=== PATIENT | female | born 1945 | race Caucasian/White ===

== ENCOUNTER 2023-10-22 19:05 | Inpatient (IN) | payer BC, OTHER ==
[~2023-10-22] VITALS: Ht 167.6 cm; Wt 137.6 kg
[2023-10-22] MEDS ORDERED: KETOROLAC TROMETHAMINE INJ 30 MG/ML VIAL ONE (19:37)
[2023-10-22] MEDS ORDERED: MORPHINE SULFATE INJ 4 MG/ML DISP.SYRIN ONE (19:37)
[2023-10-22] MEDS: FENTANYL PF 100MCG/2ML AMPUL IM ONE (19:53)
[2023-10-22] MEDS: MORPHINE SULFATE INJ 2 MG/ML DISP.SYRIN IV ONE (19:54)
[2023-10-22] MEDS: KETOROLAC TROMETHAMINE INJ 60 MG/2 ML VIAL IM ONE (19:55)
[2023-10-22 20:23] LABS: BASOPHILS # (AUTO) 0.1 K/uL (0.0-0.2); BASOPHILS % (AUTO) 0.6 % (0.0-2.0); EOSINOPHILS # (AUTO) 0.2 K/uL (0.0-0.7); EOSINOPHILS % (AUTO) 1.6 % (0.0-6.0); HEMATOCRIT 37 % (33-45); LYMPHOCYTES # (AUTO) 1.4 K/uL (0.8-4.8); LYMPHOCYTES % (AUTO) 11.1 % (20.0-44.0); MEAN CORPUSCULAR HEMOGLOBIN 30 PG (26.0-33.0); MEAN CORPUSCULAR HGB CONC 33 g/dl (31.0-36.0); MEAN CORPUSCULAR VOLUME 91 fL (82-100); MONOCYTES # (AUTO) 0.8 K/uL (0.1-1.30); MONOCYTES % (AUTO) 6.6 % (2.0-12.0); NEUTROPHILS # (AUTO) 9.9 K/uL (1.8-8.9); NEUTROPHILS % (AUTO) 80.1 % (43.0-81.0); PLATELET COUNT (AUTO) 194 K/uL (150-450); RED BLOOD CELL COUNT(AUTO) 4.06 MIL/uL (4.0-5.2); WHITE BLOOD COUNT (AUTO) 12.4 K/uL (4.3-11.0)
[2023-10-22 20:46] LABS: CALCIUM, SERUM 8.8 mg/dL (8.5-10.1); CARBON DIOXIDE 28 mmol/L (21-32); CHLORIDE 105 mmol/L (98-107); CREATININE 0.9 mg/dL (0.6-1.3); GLUCOSE 127 mg/dL (74-106); POTASSIUM 3.9 mmol/L (3.5-5.1); SODIUM SERUM 139 mmol/L (136-145); UREA NITROGEN, BLOOD 21 mg/dL (7-18)
[2023-10-22 21:01] LABS: INR 0.96 (0.91-1.10); PARTIAL THROMBOPLASTIN TIME 26.2 SEC (24.3-34.3); PROTHROMBIN TIME 10.2 SECS (9.2-11.1)
[2023-10-22] MEDS ORDERED: ONDANSETRON HCL/PF 4 MG/2 ML VIAL IVP PRN (21:30)
[2023-10-22] MEDS ORDERED: MORPHINE SULFATE INJ 4 MG/ML DISP.SYRIN IV PRN (21:30)
[2023-10-22] MEDS: IV LR 1000 ML 1,000 ML IV ONE (23:04)
[2023-10-23 00:08] VITALS: BP 134/80; TEMP 97.9; O2SAT 96
[2023-10-23] MEDS: MORPHINE SULFATE INJ 4 MG/ML DISP.SYRIN IV PRN (01:33)
[2023-10-23 04:00] VITALS: BP 147/80; TEMP 98.3; O2SAT 96
[2023-10-23 06:02] LABS: BASOPHILS # (AUTO) 0.1 K/uL (0.0-0.2); BASOPHILS % (AUTO) 0.7 % (0.0-2.0); EOSINOPHILS # (AUTO) 0.2 K/uL (0.0-0.7); EOSINOPHILS % (AUTO) 2.2 % (0.0-6.0); HEMATOCRIT 35 % (33-45); HEMOGLOBIN 11.5 g/dL (11.5-14.8); LYMPHOCYTES # (AUTO) 1.8 K/uL (0.8-4.8); LYMPHOCYTES % (AUTO) 21.2 % (20.0-44.0); MEAN CORPUSCULAR HEMOGLOBIN 30 PG (26.0-33.0); MEAN CORPUSCULAR HGB CONC 33 g/dl (31.0-36.0); MEAN CORPUSCULAR VOLUME 91 fL (82-100); MONOCYTES # (AUTO) 0.8 K/uL (0.1-1.30); NEUTROPHILS # (AUTO) 5.5 K/uL (1.8-8.9); NEUTROPHILS % (AUTO) 65.9 % (43.0-81.0); PLATELET COUNT (AUTO) 179 K/uL (150-450); RED CELL DISTRIBUTION WIDTH 14.8 % (11.5-15.0); WHITE BLOOD COUNT (AUTO) 8.4 K/uL (4.3-11.0)
[2023-10-23 06:13] LABS: CALCIUM, SERUM 8.5 mg/dL (8.5-10.1); CARBON DIOXIDE 25 mmol/L (21-32); CHLORIDE 108 mmol/L (98-107); CREATININE 0.8 mg/dL (0.6-1.3); GLUCOSE 113 mg/dL (74-106); POTASSIUM 4.1 mmol/L (3.5-5.1); SODIUM SERUM 141 mmol/L (136-145); UREA NITROGEN, BLOOD 22 mg/dL (7-18)
[2023-10-23] MEDS: PANTOPRAZOLE 40 MG VIAL IV SCH (08:12)
[2023-10-23] MEDS ORDERED: SIMV5TAB59 PO (08:29)
[2023-10-23] MEDS ORDERED: CELE200C PO (08:29)
[2023-10-23] MEDS ORDERED: CHOL100043 PO (08:29)
[2023-10-23] MEDS ORDERED: WEGOVY SQ (08:29)
[2023-10-23] MEDS ORDERED: ASPI-1169 PO (08:29)
[2023-10-23] MEDS ORDERED: ALPR0.25 PO (08:29)
[2023-10-23] MEDS ORDERED: CEPH-570 PO (08:29)
[2023-10-23] MEDS ORDERED: CARV12.5 PO (08:29)
[2023-10-23] MEDS ORDERED: UBID100C13 PO (08:29)
[2023-10-23] MEDS ORDERED: OLME40TA18 PO (08:29)
[2023-10-23 09:12] LABS: INR 0.99 (0.91-1.10); PARTIAL THROMBOPLASTIN TIME 26.7 SEC (24.3-34.3); PROTHROMBIN TIME 10.5 SECS (9.2-11.1)
[2023-10-23] MEDS: CARVEDILOL 12.5 MG TABLET PO SCH (10:38)
[2023-10-23 12:00] VITALS: BP 145/66; TEMP 98.3; O2SAT 96
[2023-10-23] MEDS: ALPRAZOLAM 0.5 MG TABLET PO PRN (14:41)
[2023-10-23] MEDS: SIMVASTATIN 20 MG TABLET PO SCH (17:03)
[2023-10-23 17:17] VITALS: BP 147/63; TEMP 98.3; O2SAT 96
[2023-10-24 04:00] VITALS: BP 138/68; TEMP 98.3; O2SAT 95
[2023-10-24 07:04] LABS: BASOPHILS % (AUTO) 0.6 % (0.0-2.0); EOSINOPHILS # (AUTO) 0.2 K/uL (0.0-0.7); EOSINOPHILS % (AUTO) 2.6 % (0.0-6.0); HEMATOCRIT 33 % (33-45); HEMOGLOBIN 10.8 g/dL (11.5-14.8); LYMPHOCYTES # (AUTO) 1.9 K/uL (0.8-4.8); LYMPHOCYTES % (AUTO) 21.3 % (20.0-44.0); MEAN CORPUSCULAR HEMOGLOBIN 30 PG (26.0-33.0); MEAN CORPUSCULAR HGB CONC 33 g/dl (31.0-36.0); MEAN CORPUSCULAR VOLUME 92 fL (82-100); NEUTROPHILS # (AUTO) 5.6 K/uL (1.8-8.9); NEUTROPHILS % (AUTO) 64.5 % (43.0-81.0); PLATELET COUNT (AUTO) 161 K/uL (150-450); RED BLOOD CELL COUNT(AUTO) 3.62 MIL/uL (4.0-5.2); WHITE BLOOD COUNT (AUTO) 8.7 K/uL (4.3-11.0)
[2023-10-24 07:17] VITALS: BP 138/68; TEMP 98.3; O2SAT 95
[2023-10-24 07:32] LABS: ALANINE AMINOTRANSFERASE 19 U/L (12-78); ALBUMIN 2.7 g/dL (3.4-5.0); ALKALINE PHOSPHATASE 57 U/L (46-116); ASPARTATE AMINOTRANSFERASE 11 U/L (15-37); BILIRUBIN,TOTAL 1.3 mg/dL (0.2-1.0); CALCIUM, SERUM 8.7 mg/dL (8.5-10.1); CARBON DIOXIDE 27 mmol/L (21-32); CHLORIDE 106 mmol/L (98-107); CREATININE 0.8 mg/dL (0.6-1.3); GLUCOSE 101 mg/dL (74-106); MAGNESIUM 2.1 mg/dL (1.8-2.4); PHOSPHORUS 3.8 mg/dL (2.5-4.9); POTASSIUM 3.9 mmol/L (3.5-5.1); SODIUM SERUM 141 mmol/L (136-145); UREA NITROGEN, BLOOD 15 mg/dL (7-18)
[2023-10-24 08:00] VITALS: BP 144/68; TEMP 97.9; O2SAT 95
[2023-10-24] MEDS: LOSARTAN POTASSIUM 50 MG TABLET PO SCH (10:00)
[2023-10-24] MEDS ORDERED: VANCOMYCIN 1 GM VIAL ONE (11:22)
[2023-10-24] MEDS ORDERED: BUPIVACAINE 0.5 % PF 150 MG/30 ML VIAL ONE (11:22)
[2023-10-24] MEDS ORDERED: FENTANYL PF 100MCG/2ML AMPUL ONE (11:38)
[2023-10-24] MEDS ORDERED: MIDAZOLAM HCL 2 MG/2ML VIAL ONE (12:00)
[2023-10-24] MEDS ORDERED: HYDROMORPHONE INJ 2 MG/ML DISP.SYRIN ONE (12:25)
[2023-10-24] MEDS ORDERED: ROPIVACAINE HCL 0.5% 5 MG/ML 30ML VIAL ONE (14:16)
[2023-10-24 16:00] VITALS: BP 109/60; TEMP 97; O2SAT 95
[2023-10-24] MEDS: IV D5/0.45 NACL W/20 MEQ KCL 1L IV SCH (16:59)
[2023-10-24] MEDS: ANCEF 1 GM/50 ML D5W IV SCH (20:02)
[2023-10-24] MEDS: MORPHINE SULFATE INJ 4 MG/ML DISP.SYRIN IV PRN (22:59)
[2023-10-25 04:00] VITALS: BP 124/48; TEMP 99.1; O2SAT 95
[2023-10-25 06:12] LABS: BASOPHILS % (AUTO) 0.4 % (0.0-2.0); EOSINOPHILS # (AUTO) 0.1 K/uL (0.0-0.7); EOSINOPHILS % (AUTO) 1.3 % (0.0-6.0); HEMATOCRIT 28 % (33-45); HEMOGLOBIN 9.5 g/dL (11.5-14.8); LYMPHOCYTES # (AUTO) 1.6 K/uL (0.8-4.8); LYMPHOCYTES % (AUTO) 15.2 % (20.0-44.0); MEAN CORPUSCULAR HEMOGLOBIN 31 PG (26.0-33.0); MEAN CORPUSCULAR HGB CONC 34 g/dl (31.0-36.0); MEAN CORPUSCULAR VOLUME 91 fL (82-100); MONOCYTES # (AUTO) 1.3 K/uL (0.1-1.30); MONOCYTES % (AUTO) 11.8 % (2.0-12.0); NEUTROPHILS # (AUTO) 7.7 K/uL (1.8-8.9); NEUTROPHILS % (AUTO) 71.3 % (43.0-81.0); PLATELET COUNT (AUTO) 159 K/uL (150-450); RED BLOOD CELL COUNT(AUTO) 3.09 MIL/uL (4.0-5.2); RED CELL DISTRIBUTION WIDTH 14.9 % (11.5-15.0); WHITE BLOOD COUNT (AUTO) 10.8 K/uL (4.3-11.0)
[2023-10-25 06:52] LABS: ALANINE AMINOTRANSFERASE 16 U/L (12-78); ALBUMIN 2.6 g/dL (3.4-5.0); ALKALINE PHOSPHATASE 60 U/L (46-116); ASPARTATE AMINOTRANSFERASE 15 U/L (15-37); BILIRUBIN,TOTAL 1.5 mg/dL (0.2-1.0); CALCIUM, SERUM 8.2 mg/dL (8.5-10.1); CARBON DIOXIDE 26 mmol/L (21-32); CHLORIDE 104 mmol/L (98-107); GLUCOSE 114 mg/dL (74-106); MAGNESIUM 1.8 mg/dL (1.8-2.4); PHOSPHORUS 3.8 mg/dL (2.5-4.9); POTASSIUM 4.1 mmol/L (3.5-5.1); SODIUM SERUM 139 mmol/L (136-145); TOTAL PROTEIN, SERUM 5.9 g/dL (6.4-8.2); UREA NITROGEN, BLOOD 18 mg/dL (7-18)
[2023-10-25] MEDS: PANTOPRAZOLE 40 MG TABLET.DR PO SCH (08:42)
[2023-10-25] MEDS: ENOXAPARIN SODIUM 40 MG/0.4 ML DISP.SYRIN SQ SCH (08:44)
[2023-10-25 09:21] LABS: IRON, SERUM 46 ug/dl (50-175); TOTAL IRON BINDING CAPACITY 241 ug/dl (250-450)
[2023-10-25 09:34] LABS: FERRITIN 510 ng/mL (8-388)
[2023-10-25 12:00] VITALS: BP 121/62; TEMP 99.1; O2SAT 94
[2023-10-25 15:51] VITALS: O2SAT 86; O2SAT 95
[2023-10-25 16:00] VITALS: BP 124/70; TEMP 98.6; O2SAT 96
[2023-10-25 20:00] VITALS: BP 118/52; TEMP 99.1; O2SAT 96
[2023-10-26 04:00] VITALS: BP 100/48; TEMP 99; O2SAT 96
[2023-10-26 08:30] VITALS: BP 107/46; TEMP 98.2; O2SAT 96
[2023-10-26] MEDS ORDERED: Z GUARD REMEDY 4 OZ OINT TP PRN (08:30)
[2023-10-26] MEDS: CLOTRIMAZOLE 1% 15 GM TUBE TP SCH (08:57)
[2023-10-26] MEDS: Z GUARD REMEDY 4 OZ OINT TP SCH (08:58)
[2023-10-26 09:27] LABS: BASOPHILS # (AUTO) 0.1 K/uL (0.0-0.2); BASOPHILS % (AUTO) 0.8 % (0.0-2.0); EOSINOPHILS # (AUTO) 0.2 K/uL (0.0-0.7); EOSINOPHILS % (AUTO) 1.4 % (0.0-6.0); HEMATOCRIT 24 % (33-45); LYMPHOCYTES # (AUTO) 1.6 K/uL (0.8-4.8); LYMPHOCYTES % (AUTO) 15.7 % (20.0-44.0); MEAN CORPUSCULAR HEMOGLOBIN 31 PG (26.0-33.0); MEAN CORPUSCULAR HGB CONC 34 g/dl (31.0-36.0); MEAN CORPUSCULAR VOLUME 91 fL (82-100); MONOCYTES # (AUTO) 1.3 K/uL (0.1-1.30); NEUTROPHILS # (AUTO) 7.3 K/uL (1.8-8.9); NEUTROPHILS % (AUTO) 70.1 % (43.0-81.0); PLATELET COUNT (AUTO) 153 K/uL (150-450); RED BLOOD CELL COUNT(AUTO) 2.59 MIL/uL (4.0-5.2); RED CELL DISTRIBUTION WIDTH 14.8 % (11.5-15.0); WHITE BLOOD COUNT (AUTO) 10.5 K/uL (4.3-11.0)
[2023-10-26] MEDS ORDERED: SOD FERRIC GLUC 125 MG in IV NS 0.9% 100 ML IV SCH (14:00)
[2023-10-26] MEDS: SOD FERRIC GLUC 125 MG in IV NS 0.9% 100 ML IV SCH (14:39)
[2023-10-26 15:19] VITALS: O2SAT 96
[2023-10-26 16:15] VITALS: BP 108/40; TEMP 98.8; O2SAT 97
[2023-10-26 17:20] VITALS: BP 120/99; O2SAT 96
[2023-10-26 20:00] VITALS: BP 115/55; TEMP 99.1; O2SAT 96
[2023-10-27 04:00] VITALS: BP 118/57; TEMP 99.1; O2SAT 94
[2023-10-27 08:00] VITALS: BP 115/55; TEMP 99.1; O2SAT 96
[2023-10-27 11:15] LABS: BASOPHILS % (AUTO) 0.5 % (0.0-2.0); EOSINOPHILS # (AUTO) 0.2 K/uL (0.0-0.7); HEMATOCRIT 24 % (33-45); LYMPHOCYTES # (AUTO) 1.4 K/uL (0.8-4.8); LYMPHOCYTES % (AUTO) 14.5 % (20.0-44.0); MEAN CORPUSCULAR HEMOGLOBIN 30 PG (26.0-33.0); MEAN CORPUSCULAR HGB CONC 33 g/dl (31.0-36.0); MEAN CORPUSCULAR VOLUME 91 fL (82-100); MONOCYTES # (AUTO) 0.8 K/uL (0.1-1.30); MONOCYTES % (AUTO) 8.7 % (2.0-12.0); NEUTROPHILS # (AUTO) 7.2 K/uL (1.8-8.9); NEUTROPHILS % (AUTO) 74.3 % (43.0-81.0); PLATELET COUNT (AUTO) 173 K/uL (150-450); RED BLOOD CELL COUNT(AUTO) 2.65 MIL/uL (4.0-5.2); RED CELL DISTRIBUTION WIDTH 14.7 % (11.5-15.0); WHITE BLOOD COUNT (AUTO) 9.7 K/uL (4.3-11.0)
[2023-10-27] MEDS: DOCUSATE SODIUM 100 MG CAPSULE PO ONE (15:33)
[2023-10-27 16:00] VITALS: BP 127/59; TEMP 98.4; O2SAT 96
[2023-10-27] MEDS: DOCUSATE SODIUM 100 MG CAPSULE PO SCH (16:30)
[2023-10-27] MEDS: SENNOSIDES 8.6 MG TABLET PO SCH (16:30)
[2023-10-27] MEDS: ALPRAZOLAM 0.25 MG TABLET PO PRN (16:43)
[2023-10-27] MEDS: HYDROCODONE/APAP 10/325MG TABLET PO PRN (19:47)
[2023-10-27 20:00] VITALS: BP 129/55; TEMP 98.1
[2023-10-28 04:58] VITALS: BP 131/56; TEMP 98.6; O2SAT 99
[2023-10-28 08:00] VITALS: BP 129/49; TEMP 97.4; O2SAT 99
[2023-10-28] MEDS: SENNOSIDES/DOCUSATE SODIUM 1 TAB TABLET PO SCH (09:26)
[2023-10-28] MEDS: POLYETHYLENE GLYCOL 3350 17 GM POWD.PACK PO SCH (09:26)
[2023-10-28 16:00] VITALS: BP 130/57; TEMP 97.3; O2SAT 99
[2023-10-28] MEDS: NA PHOS,M-B/NA PHOS,DI-BA 1 EA ENEMA RC STA (19:18)
[2023-10-28 20:00] VITALS: BP 131/69; TEMP 97.9; O2SAT 96
[2023-10-28] MEDS: POLYETHYLENE GLYCOL 3350 17 GM POWD.PACK PO PRN (21:42)
[2023-10-28] MEDS: NA PHOS,M-B/NA PHOS,DI-BA 1 EA ENEMA RC ONE (23:25)
[2023-10-29 04:00] VITALS: BP 119/57; TEMP 98.1; O2SAT 95
[2023-10-29 08:00] VITALS: BP 142/65; TEMP 98.2; O2SAT 96
[2023-10-29 09:27] LABS: BASOPHILS # (AUTO) 0.1 K/uL (0.0-0.2); BASOPHILS % (AUTO) 0.7 % (0.0-2.0); EOSINOPHILS # (AUTO) 0.3 K/uL (0.0-0.7); EOSINOPHILS % (AUTO) 3.5 % (0.0-6.0); HEMATOCRIT 24 % (33-45); HEMOGLOBIN 8.1 g/dL (11.5-14.8); LYMPHOCYTES # (AUTO) 1.4 K/uL (0.8-4.8); LYMPHOCYTES % (AUTO) 16.4 % (20.0-44.0); MEAN CORPUSCULAR HEMOGLOBIN 30 PG (26.0-33.0); MEAN CORPUSCULAR HGB CONC 34 g/dl (31.0-36.0); MEAN CORPUSCULAR VOLUME 90 fL (82-100); MONOCYTES # (AUTO) 0.8 K/uL (0.1-1.30); NEUTROPHILS # (AUTO) 6.2 K/uL (1.8-8.9); NEUTROPHILS % (AUTO) 70.4 % (43.0-81.0); PLATELET COUNT (AUTO) 232 K/uL (150-450); RED BLOOD CELL COUNT(AUTO) 2.68 MIL/uL (4.0-5.2); RED CELL DISTRIBUTION WIDTH 14.6 % (11.5-15.0); WHITE BLOOD COUNT (AUTO) 8.8 K/uL (4.3-11.0)
[2023-10-29 10:49] LABS: EOSINOPHILS % (MANUAL) 2 % (0-4); LYMPHOCYTES % (MANUAL) 17 % (16-48); MONOCYTES % (MANUAL) 11 % (0-11.0); NEUTROPHILS % (MANUAL) 70 (42-76); PLATELET ESTIMATE ADEQUATE
[2023-10-29 11:10] LABS: CARBON DIOXIDE 29 mmol/L (21-32); CHLORIDE 104 mmol/L (98-107); CREATININE 0.9 mg/dL (0.6-1.3); GLUCOSE 95 mg/dL (74-106); POTASSIUM 4.2 mmol/L (3.5-5.1); SODIUM SERUM 138 mmol/L (136-145); UREA NITROGEN, BLOOD 19 mg/dL (7-18)
[2023-10-29] MEDS: NA PHOS,M-B/NA PHOS,DI-BA 1 EA ENEMA RC ONE (14:25)
[2023-10-29 16:00] VITALS: BP 126/69; TEMP 98.2; O2SAT 96
[2023-10-29 20:00] VITALS: BP 123/47; TEMP 98.1; O2SAT 96
[2023-10-30 04:00] VITALS: BP 136/60; TEMP 98.5; O2SAT 93
[2023-10-30 08:00] VITALS: BP 129/60; TEMP 98.2; O2SAT 95
[2023-10-30 16:00] VITALS: BP 118/51; TEMP 98.8; O2SAT 95
[2023-10-30 20:00] VITALS: BP 123/47; TEMP 98.1; O2SAT 96
[2023-10-30 20:23] VITALS: BP 138/69; TEMP 98.6; O2SAT 96
[2023-10-30] MEDS: ALPRAZOLAM 0.25 MG TABLET PO ONE (22:29)
[2023-10-31 04:00] VITALS: BP 149/57; TEMP 98.4; O2SAT 95
[2023-10-31 08:00] VITALS: BP 142/62; TEMP 98.1; O2SAT 98
[2023-10-31 09:40] LABS: BASOPHILS # (AUTO) 0.1 K/uL (0.0-0.2); EOSINOPHILS # (AUTO) 0.5 K/uL (0.0-0.7); EOSINOPHILS % (AUTO) 5.5 % (0.0-6.0); HEMATOCRIT 25 % (33-45); HEMOGLOBIN 8.2 g/dL (11.5-14.8); LYMPHOCYTES # (AUTO) 1.5 K/uL (0.8-4.8); LYMPHOCYTES % (AUTO) 15.3 % (20.0-44.0); MEAN CORPUSCULAR HEMOGLOBIN 30 PG (26.0-33.0); MEAN CORPUSCULAR HGB CONC 33 g/dl (31.0-36.0); MEAN CORPUSCULAR VOLUME 93 fL (82-100); MONOCYTES # (AUTO) 0.8 K/uL (0.1-1.30); MONOCYTES % (AUTO) 8.4 % (2.0-12.0); NEUTROPHILS # (AUTO) 6.9 K/uL (1.8-8.9); NEUTROPHILS % (AUTO) 69.8 % (43.0-81.0); PLATELET COUNT (AUTO) 266 K/uL (150-450); RED BLOOD CELL COUNT(AUTO) 2.73 MIL/uL (4.0-5.2); RED CELL DISTRIBUTION WIDTH 15.1 % (11.5-15.0); WHITE BLOOD COUNT (AUTO) 9.8 K/uL (4.3-11.0)
[2023-10-31 16:00] VITALS: BP 135/66; TEMP 98.1; O2SAT 96
[2023-10-31 18:00] VITALS: BP 135/66; TEMP 98.1; O2SAT 96
[2023-10-31 20:00] VITALS: BP 136/80; TEMP 98.7; O2SAT 96
[2023-11-01 04:00] VITALS: BP 152/63; TEMP 99; O2SAT 96
[2023-11-01 08:00] VITALS: BP 143/75; TEMP 98.6; O2SAT 94
[2023-11-01 08:29] VITALS: BP 143/73
[2023-11-01] MEDS ORDERED: ENOX40DI SQ (10:43)
== END 2023-11-01 14:01 | DRG 492 ==
LOC: ER 19:12 → MEDSG1 20:57
PROVIDERS: ATTEND Internal Medicine
PROC: 0QSG04Z Reposition Right Tibia with Internal Fixation Device, Open Approach (ICD-10-PCS; principal; 2023-10-24)
PROC: 0QSJ04Z Reposition Right Fibula with Internal Fixation Device, Open Approach (ICD-10-PCS; 2023-10-24)
DX: S82.871A Displaced pilon fracture of right tibia, initial encounter for closed fracture (principal); N17.0 Acute kidney failure with tubular necrosis; Z68.42 Body mass index [BMI] 45.0-49.9, adult; V43.52XA Car driver injured in collision with other type car in traffic accident, initial encounter; Y92.410 Unspecified street and highway as the place of occurrence of the external cause; E86.0 Dehydration; E66.01 Morbid (severe) obesity due to excess calories; S82.831A Other fracture of upper and lower end of right fibula, initial encounter for closed fracture; I10 Essential (primary) hypertension; Z88.8 Allergy status to other drugs, medicaments and biological substances; D72.829 Elevated white blood cell count, unspecified; E78.5 Hyperlipidemia, unspecified; F41.9 Anxiety disorder, unspecified; Z90.49 Acquired absence of other specified parts of digestive tract; Z96.653 Presence of artificial knee joint, bilateral; G47.33 Obstructive sleep apnea (adult) (pediatric); I27.20 Pulmonary hypertension, unspecified; D64.9 Anemia, unspecified; K59.00 Constipation, unspecified
CPT/HCPCS: 36415; 71045-TC; 73600-TC; 73610-TC; 73630-TC; 80048-TC; 80053-TC; 82728-TC; 83540-TC; 83735-TC; 84100-TC; 84443-TC; 85025-TC; 85610-TC; 85730-TC; 86850-TC; 87086-TC; 94762-TC; 94799-TC; 97110-TC; 97112-TC; 97530-TC; 97535-TC; A4223; A6402; C1713; G0378; J0690; J1100; J1170; J1650; J1885; J2250; J2270; J2405; J2470; J2704; J2795; J2916; J3010; J3370; J3480; J3490; J7030; J7050; J7060; J7120